=== PATIENT | female | born 1955 | race Caucasian/White ===

== ENCOUNTER 2019-03-17 22:42 | Inpatient (IN) | payer MEDICARE, OTHER ==
[~2019-03-17] VITALS: Ht 162.6 cm; Wt 110.4 kg
--- NOTE | 2019-03-17 22:50 | PHYS DOC ---
Past History Past Medical History: Bronchitis, CAD, COPD, Diabetes, Heart Disease, Other Past Surgical History: Angioplasty Smoking: Cigarettes Adult General Chief Complaint Chief Complaint: ".. I ve been sick since .. coughing all the time.. short of breath,.. fever .. chills...." HPI HPI Patient is a 63 year old female who presents with above hx and complaints fever, chills, malaise, myalgia, arthralgia, wheezing, chest discomfort, and fatigue. Patient does smoke. Patient localizes pain along left sternal border has been present for the last couple hours. Patient had been coughing hard prior to the onset of pain. Patient states it may be related to . No recent travel. No significant ill contacts other than the 2 grandchildren that have upper respiratory infection.. She did not get flu vaccination this season. She does have a history of elevated cholesterol and prior coronary artery disease, diabetes, and tobacco use. Patient does have a history of previous [address] ents. Pt. follows with Dr. Champion. Review of Systems Review of Systems Constitutional: Complaints of fever or chills [] Eyes: Denies change in visual acuity, redness, or eye pain [] HENT: Denies nasal congestion or sore throat [] Respiratory: Hx. non productive cough and wheezing. Cardiovascular: No additional information not addressed in HPI [] GI: Denies abdominal pain, nausea, vomiting, bloody stools or diarrhea [] : Denies dysuria or hematuria [] Musculoskeletal: Complaints of myalgia Integument: Denies rash or skin lesions [] Neurologic: Denies headache, focal weakness or sensory changes [] Endocrine: Denies polyuria or polydipsia [] All other systems were reviewed and found to be within normal limits, except as documented in this note. Family History Family History Multiple family members she has had cardiovascular disease. Mother at age 44. Has two brothers have history of respiratory problems and one brother of acute CO. One sister has a history of respiratory and cardiac issues. Current Medications Current Medications See nursing for home medications Allergies Allergies See nursing for allergies-penicillin codeine hydrocodone metformin informant and morphine Physical Exam Physical Exam Constitutional: Moderate acute distress, non-toxic appearance. [] HENT: Normocephalic, atraumatic, bilateral external ears normal, oropharynx moist, mild injection of pharynx, no oral exudates, nose swollen turbinates and rhinorrhea Eyes: PERRLA, EOMI, conjunctiva normal, no discharge. [] Neck: Normal range of motion, no tenderness, supple, no stridor. [] Cardiovascular:Heart rate regular rhythm, no murmur []PMI slightly to the left Lungs & Thorax: Bilateral breath sounds equal at apexes with scattered wheezes throughout on auscultation [] Abdomen: Bowel sounds normal, soft, no tenderness, no masses, no pulsatile masses. Obese. Skin: Warm, dry, no erythema, no rash. [] Back: No tenderness, no CVA tenderness. [] Extremities: No tenderness, no cyanosis, no clubbing, ROM intact, trace ankle edema. [] Neurologic: Alert and oriented X 3, normal motor function, normal sensory function, no focal deficits noted. [] Psychologic: Affect anxious, judgement normal, mood normal. [] EKG EKG My interpretation EKG shows a sinus rhythm at 73 bpm. No finding acute STEMI. Does have metabolic block with some nonspecific contour changes. But no findings acute STEMI with contralateral changes.[] Radiology/Procedures Radiology/Procedures [][place] [address] IMAGING REPORT Signed PATIENT: EDGARDO LA MACCOUNT: [id number] : 1955 LOCATION: ER AGE: 63 SEX: F EXAM STATUS: REG ER ORD. PHYSICIAN: RAUL BREWER MD REASON: Chest pain, cough, congestion, dyspnea, elev. d dimer PROCEDURE: CT ANGIOGRAPHY CHEST PQRS Compliance Statement: One or more of the following individualized dose reduction techniques were utilized for this examination: 1. Automated exposure control 2. Adjustment of the mA and/or kV according to patient size 3. Use of iterative reconstruction technique CT CHEST WITH CONTRAST, PULMONARY ANGIOGRAM History: Chest pain, cough, congestion, dyspnea, elevated d-dimer. Comparison: CT abdomen and pelvis with contrast September 04, 2012. Technique: Helical CT of the chest was performed after the administration of 100 cc of Omnipaque 350 intravenous contrast according to PE protocol. Axial and coronal reconstructions were obtained. 3-D MIP images were constructed to better evaluate the pulmonary arteries. Findings: Pulmonary arteries are adequately opacified. There is no evidence of pulmonary embolism. There is no thoracic aortic dissection. Visualized thyroid is symmetric. There is mild bilateral hilar adenopathy. No mediastinal adenopathy. Subcentimeter mediastinal lymph nodes. The great vessels are normal caliber. There is coronary artery disease. The cardiac size is normal, no pericardial effusion. New There is no pleural effusion. There is minimal atelectasis in the posterior lower lobes bilaterally. The central airways are patent. There is a 5 mm groundglass nodule in the right lower lobe, image 105. There is a 5 mm subsolid nodule in the superior segment of the left lower lobe, image 74. Lobular contour of the inferior spleen is incompletely imaged but is stable from prior study. Right adrenal nodule is stable. Left adrenal nodule is stable. Degenerative endplate spurring of the thoracic spine. IMPRESSION: 1. There is no CT evidence of pulmonary embolus. 2. Mild bilateral hilar adenopathy is nonspecific and may be reactive. Recommend CT chest follow-up in 3 months. 3. There is a subcentimeter groundglass nodule in the right lower lobe and a subsolid nodule in the left lower lobe. Suggest attention on follow-up. 4. Stable small bilateral adrenal nodules. Electronically signed by: Goldy Alonzo MD (03/18/2019 2:49 AM) [id number] DICTATED AND SIGNED BY: GOLDY ALONZO MD DATE: 03/18/19 0249 CC: FANI CHAMPION; RAUL BREWER MD ~ Course & Med Decision Making Course & Med Decision Making Pertinent Labs and Imaging studies reviewed. (See chart for details) Pt. admitted to Dr. Curiel with cardiology consult. Heart score 5 to 6 Impression: 1. Chest Pain- chest wall 2. Bronchitis 3. Elevated D-dimer 0.88 4. DM 5. Hilar Adenopathy and scattered infiltrates 6. CADz - Stents x 2 7. HTN 8. Hx Elevated Lipids 9. Tobacco Use 10. Dyspnea [] Dragon Disclaimer Dragon Disclaimer This electronic medical record was generated, in whole or in part, using a voice recognition dictation system. Departure Departure: Disposition: 01 HOME/RESIDENCE PRIOR TO ADM Condition: STABLE Referrals: FANI CHAMPION (PCP) Will Disclaimer This chart was dictated in whole or in part using Voice Recognition software in a busy, high-work load, and often noisy Emergency Department environment. It may contain unintended and wholly unrecognized errors or omissions. Dragon Disclaimer This chart was dictated in whole or in part using Voice Recognition software in a busy, high-work load, and often noisy Emergency Department environment. It may contain unintended and wholly unrecognized errors or omissions. RAUL BREWER MD Mar 17, 2019 22:50
[2019-03-17] MEDS ORDERED: ASPIRIN 81 MG TAB.CHEW PO ONE (23:00)
[2019-03-18] MEDS: IV RINGERS SOLUTION,LACTATED 1,000 ML IV SCH ×2 (00:28→02:16)
[2019-03-18 00:32] LABS: BASO % 1 % (0-3); EOS % 0 % (0-3); HEMATOCRIT 41.9 % (36.0-47.0); HEMOGLOBIN 14.2 g/dL (12.0-15.5); LYMPH # 1.7 x10^3/uL (1.0-4.8); LYMPH % 27 % (24-48); MEAN CORPUSCULAR HEMOGLOBIN 31 pg (25-35); MEAN CORPUSCULAR HGB CONC 34 g/dL (31-37); MEAN CORPUSCULAR VOLUME 92 fL (79-100); MONO # 0.7 x10^3/uL (0.0-1.1); MONO % 12 % (0-9); NEUT # 3.8 x10^3uL (1.8-7.7); NEUT % 61 % (31-73); PLATELET COUNT 161 x10^3/uL (140-400); RED BLOOD COUNT 4.55 x10^6/uL (3.50-5.40); RED CELL DISTRIBUTION WIDTH 13.7 % (11.5-14.5); WHITE BLOOD COUNT 6.3 x10^3/uL (4.0-11.0)
[2019-03-18 00:45] LABS: CALCIUM 8.4 mg/dL (8.5-10.1); CREATININE 0.8 mg/dL (0.6-1.0); GFR 72.7; POTASSIUM 3.9 mmol/L (3.5-5.1)
[2019-03-18 00:54] LABS: ALBUMIN 3.7 g/dL (3.4-5.0); DIRECT BILIRUBIN 0.2 mg/dL (0.0-0.2); MAGNESIUM 1.9 mg/dL (1.8-2.4); TOTAL BILIRUBIN 0.6 mg/dL (0.2-1.0)
[2019-03-18] MEDS ORDERED: IV RINGERS SOLUTION,LACTATED 1,000 ML IV ONE (01:15)
--- NOTE | 2019-03-18 01:48 | RAD ---
CHEST PA LATERAL History: Chest pain, cough, congestion Comparison: Two-view chest August 05, 2012. Findings: The cardiomediastinal silhouette is normal. Pulmonary vasculature is normal. The lungs are clear. No pleural effusion or pneumothorax is seen. There is no acute bone abnormality. IMPRESSION: No acute cardiopulmonary process. Electronically signed by: Goldy Alonzo MD (03/18/2019 1:46 AM) [id number]
[2019-03-18] MEDS ORDERED: IOHEXOL 350 MG/ML 100 ML VIAL. IV ONE (02:15)
--- NOTE | 2019-03-18 02:27 | EKG ---
[address] [address] Test Date: 2019-03-17 Test Time: 23:19:47 Pat Name: EDGARDO LA Department: Room: Gender: F [employer]: : 1955 Requested By: RAUL BREWER Order Number: [id number] Reading MD: Measurements Intervals [place] Rate: 73 P: 41 VT: 142 QRS: -26 QRSD: 88 T: 10 QT: 362 QTc: 402 Interpretive Statements SINUS RHYTHM LEFTWARD AXIS INCOMPLETE RIGHT BUNDLE BRANCH BLOCK QRS(T) CONTOUR ABNORMALITY CONSIDER ANTEROSEPTAL MYOCARDIAL DAMAGE POSSIBLY ABNORMAL ECG RI6.01 No previous ECG available for comparison
[2019-03-18] MEDS ORDERED: CONTRAST GIVEN MC PRN (02:30)
[2019-03-18 02:39] LABS: INFLUENZA A PATIENT NEGATIVE (NEGATIVE); INFLUENZA B PATIENT NEGATIVE (NEGATIVE)
[2019-03-18 02:52] LABS: BACTERIA,URINE 0 /HPF (0-FEW); BILIRUBIN,URINE NEG (NEG); CLARITY,URINE CLEAR; COLOR,URINE YELLOW; GLUCOSE,URINE NEG (NEG); NITRITE,URINE NEG (NEG); RBC,URINE 0 /HPF (0-2); SQUAMOUS EPITHELIAL CELL,UR OCC /LPF; UROBILINOGEN,URINE 0.2 mg/dL (0.2 mg/dL); WBC,URINE OCC /HPF (0-4)
--- NOTE | 2019-03-18 02:53 | RAD ---
PQRS Compliance Statement: One or more of the following individualized dose reduction techniques were utilized for this examination: 1. Automated exposure control 2. Adjustment of the mA and/or kV according to patient size 3. Use of iterative reconstruction technique CT CHEST WITH CONTRAST, PULMONARY ANGIOGRAM History: Chest pain, cough, congestion, dyspnea, elevated d-dimer. Comparison: CT abdomen and pelvis with contrast September 04, 2012. Technique: Helical CT of the chest was performed after the administration of 100 cc of Omnipaque 350 intravenous contrast according to PE protocol. Axial and coronal reconstructions were obtained. 3-D MIP images were constructed to better evaluate the pulmonary arteries. Findings: Pulmonary arteries are adequately opacified. There is no evidence of pulmonary embolism. There is no thoracic aortic dissection. Visualized thyroid is symmetric. There is mild bilateral hilar adenopathy. No mediastinal adenopathy. Subcentimeter mediastinal lymph nodes. The great vessels are normal caliber. There is coronary artery disease. The cardiac size is normal, no pericardial effusion. New There is no pleural effusion. There is minimal atelectasis in the posterior lower lobes bilaterally. The central airways are patent. There is a 5 mm groundglass nodule in the right lower lobe, image 105. There is a 5 mm subsolid nodule in the superior segment of the left lower lobe, image 74. Lobular contour of the inferior spleen is incompletely imaged but is stable from prior study. Right adrenal nodule is stable. Left adrenal nodule is stable. Degenerative endplate spurring of the thoracic spine. IMPRESSION: 1. There is no CT evidence of pulmonary embolus. 2. Mild bilateral hilar adenopathy is nonspecific and may be reactive. Recommend CT chest follow-up in 3 months. 3. There is a subcentimeter groundglass nodule in the right lower lobe and a subsolid nodule in the left lower lobe. Suggest attention on follow-up. 4. Stable small bilateral adrenal nodules. Electronically signed by: Goldy Alonzo MD (03/18/2019 2:49 AM) [id number]
[2019-03-18 02:54] LABS: BARBITURATES NEG (NEG); BENZODIAZEPINES NEG (NEG); CANNABINOIDS NEG (NEG); COCAINE NEG (NEG); METHADONE NEG (NEG); OPIATES NEG (NEG); PHENCYCLIDINE NEG (NEG)
[2019-03-18 02:55] LABS: AMPHETAMINE/METHAMPHETAMINE NEG (NEG)
[2019-03-18] MEDS ORDERED: ENOXAPARIN ** NOTE DOSE ** SYRINGE SQ ONE (03:30)
[2019-03-18] MEDS ORDERED: ALBUTEROL SULFATE 8GM INHALER. INH ONE (03:30)
[2019-03-18] MEDS ORDERED: ACETAMINOPHEN 325 MG TABLET PO PRN (03:30)
[2019-03-18] MEDS ORDERED: ONDANSETRON PF 4 MG/2 ML VIAL. IV PRN (03:30)
[2019-03-18] MEDS ORDERED: predniSONE 10 MG TABLET PO ONE (03:30)
[2019-03-18] MEDS ORDERED: AZITHROMYCIN 250 MG TABLET. PO ONE (03:30)
[2019-03-18] MEDS ORDERED: CLOP75TA PO (04:41)
[2019-03-18] MEDS ORDERED: LIDO700A21 TP (04:52)
[2019-03-18] MEDS ORDERED: RANO500T2 PO (04:52)
[2019-03-18] MEDS ORDERED: ATOR10TA60 PO (04:52)
[2019-03-18] MEDS ORDERED: POTA20TA4 PO (04:52)
[2019-03-18] MEDS ORDERED: TORS10TA3 PO (04:52)
[2019-03-18] MEDS ORDERED: NITR0.4T22 SL (04:52)
[2019-03-18] MEDS ORDERED: METO-239 PO (04:52)
[2019-03-18 05:11] VITALS: BP 112/67
[2019-03-18] MEDS ORDERED: ISOS20TA2 PO (05:24)
[2019-03-18] MEDS: IPRATRPIUM/ALBUTEROL 0.5/2.5MG 3 ML NEBU. NEB SCH ×4 (05:29→21:12)
--- NOTE | 2019-03-18 05:59 | NUR ---
The patient, EDGARDO LA, 63 y/o, F admitted by ANDREA MASTERSON MD, was given written information regarding hospital policies, unit procedures and contact persons. Pt accompanied onto the unit by EMS personnel and nursing security shift supervisor. Pt ambulated from gurney to bed with standby assistance. Pt reports that she has felt "a little crappy" since , coughing and feeling hot/cold. Vitals signs and stable. Pt denies pain at this time. Wound noted to left lower abdomen, pictured taken and placed in chart. Pt reports that it is an infected hair and that she gets them all the time. Wound washed and covered with a foam dressing. Wound care consulted. Valuables were checked and left in room with pt. Reviewed plan of care, home medications and oriented pt to room. Call light within reach.
--- NOTE | 2019-03-18 07:56 | PDOC2 ---
CARDIAC CONSULT DATE OF CONSULT Date Of Consult DATE: 03/18/19 TIME: 07:52 REASON FOR CONSULT Reason for Consult Chest pain Hypertension REFERRING PHYSICIAN Referring Physician Dr. Finn SOURCE Source: Chart review, Patient HPI History of Present Illness This is a 63 yo female who presented secondary to cold symptoms with cough and shortness of breath. Patient has a history of CAD s/p PCI/stents x2 and reportedly small vessel disease and blockage that cannot be stented. Follows closely with Dr. Ayala. Had heart cath 11/2018. Reports stress test at that time along with echo within the last 3 months. Reports chronic angina that she has PRN nitro for. Is also on isosorbide as well. Has had cold with congestion and persistent cough since . Has been having stabbing pain in her left chest. Radiated up her left side and down her left arm. Pain seemed to be worsened with coughing, but is not always brought on by coughing. No associated with dizziness, diaphoresis, SOA, or nausea/vomiting. PAST MEDICAL HISTORY Cardiovascular: CAD, HTN, hyperipidemia Pulmonary: COPD GI: GERD Musculoskeletal: Osteoarthritis PAST SURGICAL HISTORY Past Surgical History: Hysterectomy, Other (PCI/stent ) FAMILY HISTORY Family History: Diabetes, Heart Disease, Stroke SOCIAL HISTORY Smoke: 1 pack per day ALCOHOL: none Drugs: None Lives: with Family CURRENT MEDICATIONS Current Medications Current Medications Aspirin (Children'S Aspirin) 324 mg 1X ONCE PO Last administered on 03/18/19at 00:28; Start 03/17/19 at 23:00; Stop 03/17/19 at 23:01; Status DC Lactated Ringer's 1,000 ml @ 100 mls/hr Q10H IV Last administered on 03/18/19at 02:16; Start 03/17/19 at 23:00; Stop 03/18/19 at 08:59 Lactated Ringer's 1,000 ml @ 1,000 mls/hr 1X ONCE IV Last administered on 03/18/19at 01:15; Start 03/18/19 at 01:15; Stop 03/18/19 at 02:14; Status DC Iohexol (Omnipaque 350 Mg/ml) 100 ml 1X ONCE IV Last administered on 03/18/19at 02:22; Start 03/18/19 at 02:15; Stop 03/18/19 at 02:19; Status DC Info (Do NOT chart on this entry -- for MONITORING) 1 each PRN DAILY PRN MC SEE COMMENTS; Start 03/18/19 at 02:30; Stop 03/20/19 at 02:29 Albuterol Sulfate (Ventolin Hfa Inhaler) 2 puff 1X ONCE INH Last administered on 03/18/19at 03:54; Start 03/18/19 at 03:30; Stop 03/18/19 at 03:31; Status DC Prednisone (Prednisone) 50 mg 1X ONCE PO Last administered on 03/18/19at 03:54; Start 03/18/19 at 03:30; Stop 03/18/19 at 03:31; Status DC Azithromycin (Zithromax) 500 mg 1X ONCE PO Last administered on 03/18/19at 03:55; Start 03/18/19 at 03:30; Stop 03/18/19 at 03:31; Status DC Enoxaparin Sodium (Lovenox 80mg Syringe) 80 mg 1X ONCE SQ Last administered on 03/18/19at 03:54; Start 03/18/19 at 03:30; Stop 03/18/19 at 03:31; Status DC Ondansetron HCl (Zofran) 4 mg PRN Q4HRS PRN IV NAUSEA/VOMITING; Start 03/18/19 at 03:30; Stop 03/19/19 at 03:29 Acetaminophen (Tylenol) 650 mg PRN Q4HRS PRN PO FEVER; Start 03/18/19 at 03:30; Stop 03/19/19 at 03:29 Albuterol/ Ipratropium (Duoneb) 3 ml RTQID NEB Last administered on 03/18/19at 05:29; Start 03/18/19 at 08:00; Stop 03/19/19 at 07:59 Enoxaparin Sodium (Lovenox 80mg Syringe) 80 mg BID SQ ; Start 03/18/19 at 09:00; Status UNV Aspirin (Children'S Aspirin) 81 mg DAILYWBKFT PO ; Start 03/18/19 at 08:00 Azithromycin (Zithromax) 250 mg DAILY PO ; Start 03/18/19 at 09:00 Active Scripts Active Reported Isosorbide Mononitrate 20 Mg Tablet 20 Mg PO BID Lidocaine PATCH (Lidocaine) 1 Each Adh..patch 1 Each TP DAILY REMOVE AFTER 12 HOURS NITROGLYCERIN SubLingual (Nitroglycerin) 0.4 Mg Tab.subl 1 Tab SL UD 1st sign of attack; may repeat every 5 mins; if pain persists after 3 in 15 min, medical attention is recommended Atorvastatin Calcium 10 Mg Tablet 1 Tab PO DAILY Potassium Chloride (Potassium Chloride) 20 Meq Tablet.er 20 Meq PO DAILY Torsemide 10 Mg Tablet 1 Tab PO DAILY 30 Days Ranexa (Ranolazine) 500 Mg Tab.er.12h 1 Tab PO BID 30 Days Metoprolol Succinate ( Xl ) (Metoprolol Succinate) 25 Mg Tab.er.24h 1 Tab PO DAILY Clopidogrel (Clopidogrel Bisulfate) 75 Mg Tablet 1 Tab PO DAILY ALLERGIES Allergies: Coded Allergies: Penicillins (Verified Allergy, Unknown, 03/18/19) codeine (Verified Allergy, Unknown, 03/18/19) hydrocodone (Verified Allergy, Unknown, 03/18/19) metformin (Verified Allergy, Unknown, 03/18/19) morphine (Verified Allergy, Unknown, 03/18/19) shrimp (Verified Allergy, Unknown, 03/18/19) ROS Review of Systems 14 point ROS conducted with pertinent positive noted above in HPI PHYSICAL EXAM General: Alert, Oriented X3, Cooperative, No acute distress HEENT: Atraumatic, Mucous membr. moist/pink Lungs: Clear to auscultation Heart: Regular rate, Normal S1, Normal S2 Abdomen: Soft Extremities: No edema, Normal pulses Skin: No rashes, No breakdown Neuro: Sensation intact Psych/Mental Status: Mental status NL, Mood NL MUSCULOSKELETAL: Osteoarthritic changes both hands VITALS Vital Signs Vital Signs Date Time Temp Pulse Resp B/P (MAP) Pulse Ox O2 Delivery O2 Flow Rate FiO2 03/18/19 05:30 97 Room Air 03/18/19 05:11 97.8 68 20 112/67 (82) LABS LABS Laboratory Tests Test 03/18/19 00:22 03/18/19 02:11 03/18/19 02:33 03/18/19 06:12 White Blood Count 6.3 x10^3/uL (4.0-11.0) Red Blood Count 4.55 x10^6/uL (3.50-5.40) Hemoglobin 14.2 g/dL (12.0-15.5) Hematocrit 41.9 % (36.0-47.0) Mean Corpuscular Volume 92 fL (79-100) Mean Corpuscular Hemoglobin 31 pg (25-35) Mean Corpuscular Hemoglobin Concent 34 g/dL (31-37) Red Cell Distribution Width 13.7 % (11.5-14.5) Platelet Count 161 x10^3/uL (140-400) Neutrophils (%) (Auto) 61 % (31-73) Lymphocytes (%) (Auto) 27 % (24-48) Monocytes (%) (Auto) 12 % (0-9) Eosinophils (%) (Auto) 0 % (0-3) Basophils (%) (Auto) 1 % (0-3) Neutrophils # (Auto) 3.8 x10^3uL (1.8-7.7) Lymphocytes # (Auto) 1.7 x10^3/uL (1.0-4.8) Monocytes # (Auto) 0.7 x10^3/uL (0.0-1.1) Eosinophils # (Auto) 0.0 x10^3/uL (0.0-0.7) Basophils # (Auto) 0.0 x10^3/uL (0.0-0.2) Prothrombin Time 9.4 SEC (9.4-11.4) Prothromb Time International Ratio 0.9 (0.9-1.1) Activated Partial Thromboplast Time 27 SEC (23-33) D-Dimer (Elaina) 0.88 mg/L (0.00-0.50) Sodium Level 144 mmol/L (136-145) Potassium Level 3.9 mmol/L (3.5-5.1) Chloride Level 103 mmol/L (98-107) Carbon Dioxide Level 26 mmol/L (21-32) Anion Gap 15 (6-14) Blood Urea Nitrogen 9 mg/dL (7-20) Creatinine 0.8 mg/dL (0.6-1.0) Estimated GFR (Cockcroft-Gault) 72.7 Glucose Level 106 mg/dL (70-99) Calcium Level 8.4 mg/dL (8.5-10.1) Magnesium Level 1.9 mg/dL (1.8-2.4) Total Bilirubin 0.6 mg/dL (0.2-1.0) Direct Bilirubin 0.2 mg/dL (0.0-0.2) Aspartate Amino Transf (AST/SGOT) 22 U/L (15-37) Alanine Aminotransferase (ALT/SGPT) 24 U/L (14-59) Alkaline Phosphatase 117 U/L (46-116) Creatine Kinase 105 U/L (26-192) Troponin I Quantitative < 0.017 ng/mL (0-0.055) < 0.017 ng/mL (0-0.055) NH-Sgc-U-Type Natriuretic Peptide 54 pg/mL (0-124) Total Protein 7.0 g/dL (6.4-8.2) Albumin 3.7 g/dL (3.4-5.0) Lipase 157 U/L (73-393) Influenza Type A (Rapid) Negative (NEGATIVE) Influenza Type B (Rapid) Negative (NEGATIVE) Group A Streptococcus Rapid Negative (NEGATIVE) Urine Collection Type Unknown Urine Color Yellow Urine Clarity Clear Urine pH 5.5 Urine Specific [place] 1.020 Urine Protein Neg (NEG-TRACE) Urine Glucose (UA) Neg mg/dL (NEG) Urine Ketones (Stick) Neg mg/dL (NEG) Urine Blood Neg (NEG) Urine Nitrite Neg (NEG) Urine Bilirubin Neg (NEG) Urine Urobilinogen Dipstick 0.2 mg/dL (0.2 mg/dL) Urine Leukocyte Esterase Neg (NEG) Urine RBC 0 /HPF (0-2) Urine WBC Occ /HPF (0-4) Urine Squamous Epithelial Cells Occ /LPF Urine Bacteria 0 /HPF (0-FEW) Urine Opiates Screen Neg (NEG) Urine Methadone Screen Neg (NEG) Urine Barbiturates Neg (NEG) Urine Phencyclidine Screen Neg (NEG) Urine Amphetamine/Methamphetamine Neg (NEG) Urine Benzodiazepines Screen Neg (NEG) Urine Cocaine Screen Neg (NEG) Urine Cannabinoids Screen Neg (NEG) Urine Ethyl Alcohol Neg (NEG) ASSESSMENT/PLAN Assessment/Plan 1. Chest pain, mixed features. AMI ruled out. 2. CAD s/p PCI/stents x2. Reportedly with known small vessel disease and stenosis not amendable to PCI per [facility] 11/2018. Follows with Dr. Ayala. Echo within last 6 months conducted. 3. Hypertension; controlled 4. Hyperlipidemia; statin 5. Acute viral illness 6. Tobaccoism; discusses/encouraged cessation Recommendations Obtain records from Dr. Ayala, [facility] Resume secondary prevention measures Continue Imdur, Ranexa for anginal prevention Nitro SL PRN Could consider outpatient referral for [facility] through [facility] given chronic angina. Will defer to primary general manager oracle data cloud. JUAN PABLO HOLT APRN Mar 18, 2019 07:56
[2019-03-18] MEDS: AZITHROMYCIN 250 MG TABLET. PO SCH (08:26)
[2019-03-18] MEDS: ASPIRIN 81 MG TAB.CHEW PO SCH (08:27)
[2019-03-18] MEDS ORDERED: ENOXAPARIN ** NOTE DOSE ** SYRINGE SQ SCH (09:00)
[2019-03-18] MEDS ORDERED: TORSEMIDE PO SCH (09:00)
[2019-03-18] MEDS: ISOSORBIDE MONONITRATE 20 MG PO SCH ×2 (09:00→21:00)
[2019-03-18] MEDS: METOPROLOL SUCC 24HR ER 25 MG TAB.ER.24H. PO SCH (10:42)
[2019-03-18] MEDS: RANOLAZINE 500 MG TAB.ER.12H PO SCH ×2 (10:43→21:00)
[2019-03-18 10:52] VITALS: BP 95/50
[2019-03-18] MEDS: CLOPIDOGREL BISULFATE 75 MG TABLET PO SCH (11:01)
[2019-03-18] MEDS: ATORVASTATIN CALCIUM 10 MG TABLET. PO SCH (11:01)
[2019-03-18] MEDS: POTASSIUM CHLORIDE 20 MEQ TABLET.ER. PO SCH (11:01)
[2019-03-18 12:30] VITALS: BP 109/62
--- NOTE | 2019-03-18 12:56 | RAD ---
Examination: VENOUS LOWER EXT BILATERAL History: Bilateral leg pain, elevated d-dimer COMPARISON/CORRELATION: None FINDINGS: Bilateral lower extremity duplex venous ultrasound exam was performed. Grayscale, color Doppler, and spectral Doppler imaging was performed. Compression and augmentation was performed. The right common femoral vein, superficial femoral vein, popliteal vein, and greater saphenofemoral junction are normal with no evidence of deep venous thrombus. Normal compressibility and augmentation is evident. The left common femoral vein, superficial femoral vein, popliteal vein, and greater saphenofemoral junction are normal with no evidence of deep venous thrombus. Normal compressibility and augmentation is evident. Visualized calf veins bilaterally are unremarkable. IMPRESSION: Normal bilateral lower extremity duplex ultrasound exam. No evidence of deep venous thrombus involving the lower extremities. Electronically signed by: Ramiro López MD (03/18/2019 12:54 PM) [id number]
[2019-03-18] MEDS: ENOXAPARIN ** NOTE DOSE ** SYRINGE SQ SCH (15:00)
--- NOTE | 2019-03-18 15:19 | HP ---
ADMIT DATE: 03/18/2019 HISTORY OF PRESENT ILLNESS: The patient is a 63-year-old female patient who came to the Emergency Room complaining that she has been sick since last , about 5 days ago complaining of cough, shortness of breath, fever and chills. She also complained of malaise, myalgia, arthralgia, wheezing and fatigue. She does smoke. The patient localized her pain along the left sternal border and has been present for the last couple of hours. She has been coughing hard prior to onset of pain and no recent travel. No significant ill contact other than 2 grandchildren, have upper respiratory tract infection. She did not get flu vaccination this season. She does have a history of elevated cholesterol. She was basically evaluated in the Emergency Room. Her EKG showed that she was in sinus rhythm at 73 beats per minute, no finding of ST segment elevation myocardial infarction. She had a CT scan of the chest with contrast showed that there is no CT evidence of pulmonary embolus. Mild bilateral hilar adenopathy is nonspecific and may be reactive. She has also had subcentimeter ground glass nodule in the right lower lobe and a soft solid nodule in the left lower lobe suggests attention on followup. She has stable small bilateral adrenal nodules. She has so far, 2 sets of cardiac enzymes, both of them were less than 0.017. The patient was admitted to consult the cardiology team. PAST MEDICAL HISTORY: Significant for coronary artery disease, hypertension, hyperlipidemia, chronic obstructive pulmonary disease and gastroesophageal reflux disease. She has also osteoarthritis and obstructive sleep apnea. PAST SURGICAL HISTORY: Significant for hysterectomy. She did have coronary artery disease with PCI and stent deployment. FAMILY HISTORY: Significant for the fact that her one of her brothers had a heart attack at age of 48. Her mother also had according to her cardiac rupture at the age of 44. SOCIAL HISTORY: She is , has 3 sons and 1 daughter. She smokes up to a pack a day, does not drink alcohol or use any recreational drugs. REVIEW OF SYSTEMS: The patient denied any blurring of vision, cataract, glaucoma or macular degeneration. Denied any earache, tinnitus or sensorineural deafness. Denied any nosebleeds, stuffy nose or postnasal drip. Denied any nausea or vomiting. Did complain of diarrhea, but no hematemesis, melena or hematochezia. Denied any dysuria, frequency or hematuria. Did complain of chest pain, which is atypical. PHYSICAL EXAMINATION: GENERAL: On arrival to the Emergency Room, she looked well and was clearly in no apparent respiratory distress. No pallor, jaundice, cyanosis or thyromegaly. No jugular venous distention. No limb edema. VITAL SIGNS: Her heart rate was 81, blood pressure was 131/74, temperature was 99, respiratory rate 20, and oxygen saturation was 95% on room air. HEAD, EYES, EARS, NOSE AND THROAT: Showed normocephalic, atraumatic. NECK: Supple. HEART: Showed normal first and second heart sounds. No gallop or murmur. CHEST: Clear to auscultation. No crepitation or rhonchi. ABDOMEN: Distended, soft, nontender. No guarding or rigidity. No organomegaly. All hernial orifices intact. Bowel sounds normal. NEUROLOGIC: She is awake, alert, responding appropriately. All cranial nerves intact. EXTREMITIES: She moves extremities without difficulty. 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 LABORATORY DATA: Her lab work on arrival showed a serum sodium 144, potassium 3.9, chloride 103, bicarbonate 26, anion gap of 15, BUN 9, creatinine 0.8, estimated GFR was 72 mL per minute. Her glucose 106, calcium was 8.4, magnesium was 1.9. Total bilirubin, AST, ALT, alkaline phosphatase were normal. CK was 105. Troponin was less than 0.017. Beta natriuretic peptide was 54. Total protein 7, albumin 3.7, lipase 157. Her prothrombin time was 9.4, INR of 0.9, aPTT was 27. D-dimer was 0.88. Urinalysis essentially unremarkable. Toxic screen was negative. Her influenza A and B and group A streptococcus rapid testing was negative. Her chest x-ray showed the cardiomediastinal silhouette is normal. Pulmonary vasculature is normal. The lungs are clear. No pleural effusion or pneumothorax is seen. There are no acute abnormalities. CT angio of the chest showed that there is no CT evidence of pulmonary embolus. There is bilateral hilar adenopathy that is nonspecific and may be reactive. Recommend CT chest, follow up in 3 months. There is a subcentimeter ground glass nodule in the right lower lobe. There is a solid nodule in the left lower lobe. Venous Doppler ultrasound of both lower extremities showed normal bilateral lower extremity Doppler ultrasound exam. No evidence of deep vein thrombosis involving the lower extremities. ASSESSMENT AND PLAN: The patient was admitted with chest pain, somewhat atypical. She has so far, 2 sets of cardiac enzymes that ruled out acute myocardial infarction. She is known to have hypertension, hyperlipidemia, coronary artery disease, status post PCI with stent deployment. She also has osteoarthritis and obstructive sleep apnea and chronic obstructive pulmonary disease. Plan is to continue with all her medication that include furosemide 10 mg once a day, Ranexa 500 mg twice a day, potassium chloride 20 mEq daily, metoprolol succinate 25 mg once a day, Plavix 75 mg once a day, atorvastatin 10 mg at bedtime, isosorbide mononitrate 20 mg twice a day, azithromycin 250 mg daily, Lovenox 80 mg twice a day, aspirin 81 mg once a day, albuterol sulfate/ipratropium bromide in 3 mL by nebulizer 4 times a day, Tylenol 650 mg every 4 hours, and ondansetron 4 mg every 6 hours. We have already consulted the Cardiology team and obviously will decide the further management accordingly. ANDREA MASTERSON MD DR: MICAH/tomeka JOB#: [id number] / [id number]
[2019-03-18 15:24] VITALS: BP 109/62
[2019-03-18 19:17] VITALS: BP 98/62
[2019-03-18 21:40] VITALS: BP 90/61
[2019-03-18] MEDS: LACTOBACILLUS RHAMNOSUS GG 1 CAPSULE. PO SCH (21:40)
[2019-03-18] MEDS ORDERED: BENZOCAINE/MENTHOL LOZNGE 18'S BOX. PO PRN (21:45)
--- NOTE | 2019-03-18 22:00 | NUR ---
Pt sleeping in bed on assessment, arousable to name. Pt reports that she has had four loose stools today, but they are more solid than they where the day before. C. diff. pending at this time. Pt denies pain at this time. Call light within reach.
[2019-03-19] MEDS: IPRATRPIUM/ALBUTEROL 0.5/2.5MG 3 ML NEBU. NEB SCH (04:54)
[2019-03-19 05:37] VITALS: BP 93/58
[2019-03-19 06:25] LABS: BASO % 0 % (0-3); EOS % 0 % (0-3); HEMOGLOBIN 12.7 g/dL (12.0-15.5); LYMPH # 2.3 x10^3/uL (1.0-4.8); LYMPH % 47 % (24-48); MEAN CORPUSCULAR HEMOGLOBIN 31 pg (25-35); MEAN CORPUSCULAR HGB CONC 34 g/dL (31-37); MEAN CORPUSCULAR VOLUME 92 fL (79-100); MONO # 0.4 x10^3/uL (0.0-1.1); MONO % 9 % (0-9); NEUT # 2.2 x10^3uL (1.8-7.7); NEUT % 45 % (31-73); PLATELET COUNT 141 x10^3/uL (140-400); RED BLOOD COUNT 4.12 x10^6/uL (3.50-5.40); RED CELL DISTRIBUTION WIDTH 13.7 % (11.5-14.5); WHITE BLOOD COUNT 4.8 x10^3/uL (4.0-11.0)
[2019-03-19 06:37] LABS: CALCIUM 8.3 mg/dL (8.5-10.1); CREATININE 0.8 mg/dL (0.6-1.0); GFR 72.7; POTASSIUM 3.1 mmol/L (3.5-5.1)
[2019-03-19] MEDS ORDERED: ISOS40TA10 PO (07:49)
--- NOTE | 2019-03-19 08:15 | NUR ---
wound care patient seen per wound care consult. see wound assessment. patient has an infected hair, patient states that she has had these since she was 16 years old. patient sees a product support specialist for this, RN stated they are trying to get a hold of her product support specialist to order the cream that patient uses to assist with healing. the area was cleaned and redressed with a foam dressing, recommendations to change every 2-3 days. notified RN, about the POC and wound care is signing off at this time.
[2019-03-19] MEDS: CLOPIDOGREL BISULFATE 75 MG TABLET PO SCH (08:58)
[2019-03-19] MEDS: ATORVASTATIN CALCIUM 10 MG TABLET. PO SCH (08:58)
[2019-03-19] MEDS: AZITHROMYCIN 250 MG TABLET. PO SCH (08:58)
[2019-03-19] MEDS: LACTOBACILLUS RHAMNOSUS GG 1 CAPSULE. PO SCH (08:58)
[2019-03-19] MEDS: METOPROLOL SUCC 24HR ER 25 MG TAB.ER.24H. PO SCH (08:59)
[2019-03-19] MEDS: POTASSIUM CHLORIDE 20 MEQ TABLET.ER. PO SCH (08:59)
[2019-03-19] MEDS: ASPIRIN 81 MG TAB.CHEW PO SCH (08:59)
[2019-03-19] MEDS: RANOLAZINE 500 MG TAB.ER.12H PO SCH (08:59)
[2019-03-19] MEDS ORDERED: ISOSORBIDE DINITRATE 10 MG TABLET. PO SCH (09:00)
[2019-03-19] MEDS: ENOXAPARIN ** NOTE DOSE ** SYRINGE SQ SCH (09:00)
[2019-03-19] MEDS ORDERED: TORSEMIDE 20 MG TABLET. PO SCH (09:00)
[2019-03-19 10:19] VITALS: BP 102/64
[2019-03-19 12:56] LABS: CALCIUM 8.5 mg/dL (8.5-10.1); CREATININE 0.8 mg/dL (0.6-1.0); GFR 72.7; POTASSIUM 3.6 mmol/L (3.5-5.1)
[2019-03-19 14:51] VITALS: BP 108/65
--- NOTE | 2019-03-19 17:37 | NUR ---
NURSING NOTE: PATIENT DISCHARGED TO HOME. PATIENT GIVEN DISCHARGE INSTRUCTIONS, GAVE VERBAL UNDERSTANDING. ALL PATIENT BELONGINGS SENT HOME WITH PATIENT. PATIENT ASSISTED TO FAMILY VEHICLE BY FAMILY. NO CONCERNS NOTED.
--- NOTE | 2019-03-19 17:56 | DS ---
DATE OF DISCHARGE: 03/19/2019 HOSPITAL COURSE: The patient is a 63-year-old female patient who was admitted with a complaint of chest pain. She also complained of malaise, myalgia, arthralgia, wheezing and fatigue. She does smoke. The patient localizes her pain along the left sternal border and has been present for the last couple of hours. She has been coughing. No significant ill contact other than 2 grandchildren have upper respiratory tract infection. She did not get flu vaccination this season. She does have a history of elevated cholesterol. She was basically evaluated in the Emergency Room. Her EKG showed that she was in sinus rhythm with no finding of ST segment elevation myocardial infarction. She had a CT scan of the chest with contrast, which showed no evidence of pulmonary emboli. She has mild bilateral hilar adenopathy that is nonspecific and may be reactive. She also had subcentimeter ground glass nodules in the right lower lobe and soft solid nodule in the left lower lobe suggested attention and followup. She has stable small bilateral adrenal nodules. She was admitted and has had 2 sets of cardiac enzymes that ruled out myocardial infarction. Her fasting lipid profile showed serum triglyceride 77, total cholesterol 86, LDL cholesterol 45, VLDL was 15, and HDL cholesterol 26, the ratio was 3. TSH was normal. She was seen in consultation by the office system analyst and no active intervention was recommended. The patient was discharged home to follow with her primary office system analyst. PHYSICAL EXAMINATION: GENERAL: 2When I examined her this afternoon, she was sitting in the edge of the bed comfortably in no apparent distress. She was pale, but no jaundice, cyanosis or thyromegaly. No jugular venous distension. No limb edema. VITAL SIGNS: Her heart rate was 61, blood pressure was 108/65, temperature was 97.5, respiratory rate was 20, and oxygen saturation was 93% on room air. HEAD, EYES, EARS, NOSE AND THROAT: Normocephalic, atraumatic. NECK: Supple. HEART: Showed normal first and second heart sounds. No gallop or murmur. CHEST: Shows central trachea, equal bilateral expansion, air entry. Few scattered rhonchi. No crepitation. ABDOMEN: Soft, nontender. NEUROLOGIC: She is awake, alert, responding appropriately. All cranial nerves intact. EXTREMITIES: She moves extremities without difficulty. She ambulates without assistance or assistive devices. LABORATORY DATA: Showed a serum sodium 143, potassium 3.6, chloride 107, bicarbonate 28, anion gap of 8, BUN 11, creatinine 0.8, estimated GFR was 73 mL per minute. Her glucose 107, calcium was 8.5. Her white cell count was 4800, hemoglobin 12.7, hematocrit 38, MCV 92, and platelet count of 141,000. Her prothrombin time was 9.4, INR of 0.9, aPTT was 27. D-dimer was 0.88. DISCHARGE MEDICATIONS: The patient was discharged home to continue on atorvastatin calcium 10 mg at bedtime, Plavix 75 mg once a day, isosorbide dinitrate 20 mg twice a day, Lidoderm patch applied topically once a day on for 12 hours and off for 12 hours, metoprolol succinate 25 mg once a day, nitroglycerin 0.4 mg sublingual every 5 minutes x 3, potassium chloride 20 mEq once a day, Ranexa 500 mg twice a day and torsemide 10 mg once a day. FINAL DISCHARGE DIAGNOSES: 1. Chest pain, acute myocardial infarction, ruled out. She has 2 sets of cardiac enzymes that were negative. 2. Coronary artery disease, status post PCI with stent deployment x 2. Apparently, she is known to have small vessel disease and stenosis not amenable to PCI by left heart catheterization. 3. Hypertension, well controlled. 4. Hyperlipidemia for which she is on statin. 5. Tobaccoism. The patient encouraged to quit smoking. ANDREA MASTERSON MD DR: MICAH/tomeka JOB#: [id number] / [id number]
== END 2019-03-19 17:38 | disposition home or self-care (01) | DRG 392 ==
LOC: ER 22:42 → 1 SOUTH 03-18 03:00
PROVIDERS: ADMIT Internal Medicine; ATTEND Internal Medicine
DX: K21.9 Gastro-esophageal reflux disease without esophagitis (principal); I25.10 Atherosclerotic heart disease of native coronary artery without angina pectoris; J44.9 Chronic obstructive pulmonary disease, unspecified; F17.210 Nicotine dependence, cigarettes, uncomplicated; E78.00 Pure hypercholesterolemia, unspecified; I10 Essential (primary) hypertension; G47.33 Obstructive sleep apnea (adult) (pediatric); M19.90 Unspecified osteoarthritis, unspecified site; E78.5 Hyperlipidemia, unspecified; B34.9 Viral infection, unspecified; Z95.5 Presence of coronary angioplasty implant and graft; Z90.710 Acquired absence of both cervix and uterus; Z82.49 Family history of ischemic heart disease and other diseases of the circulatory system; Z83.3 Family history of diabetes mellitus; Z82.3 Family history of stroke; Z79.899 Other long term (current) drug therapy; Z79.82 Long term (current) use of aspirin; Z79.02 Long term (current) use of antithrombotics/antiplatelets
CPT/HCPCS: 36415; 71046; 71275; 80048; 80061; 80076; 80307; 81001; 82550; 83690; 83735; 83880; 84443; 84484; 85025; 85379; 85610; 85730; 87070; 87493; 87804; 87880; 93005; 93970; 94640; 96360; 96361; 99406; J0456; J1650; J7120; J7512; J7613; J7620; Q9967; 99285-25

== ENCOUNTER 2020-05-04 22:26 | Emergency (ER) | payer MEDICARE, OTHER ==
[~2020-05-04] VITALS: Ht 162.6 cm; Wt 102.2 kg
[~2020-05-04 22:26] MED LIST: ATOR10TA60 PO; CLOP75TA PO; ISOS20TA6 PO; ISOS40TA10 PO; LIDO700A21 TP; METO-239 PO; NITR0.4T22 SL; POTA20TA4 PO; RANO500T2 PO; TORS10TA3 PO
[2020-05-04] MEDS: ASPIRIN CHEWABLE 81 MG TABLET. PO ONE (23:02)
[2020-05-04 23:08] VITALS: BP 114/82
[2020-05-04 23:09] LABS: BASO % 0 % (0-3); EOS % 0 % (0-3); HEMATOCRIT 44.1 % (36.0-47.0); HEMOGLOBIN 14.8 g/dL (12.0-15.5); LYMPH # 3.6 x10^3/uL (1.0-4.8); LYMPH % 33 % (24-48); MEAN CORPUSCULAR HEMOGLOBIN 30 pg (25-35); MEAN CORPUSCULAR HGB CONC 34 g/dL (31-37); MEAN CORPUSCULAR VOLUME 90 fL (79-100); MONO # 0.8 x10^3/uL (0.0-1.1); MONO % 8 % (0-9); NEUT # 6.4 x10^3uL (1.8-7.7); NEUT % 59 % (31-73); PLATELET COUNT 238 x10^3/uL (140-400); RED BLOOD COUNT 4.89 x10^6/uL (3.50-5.40); RED CELL DISTRIBUTION WIDTH 14.5 % (11.5-14.5); WHITE BLOOD COUNT 10.8 x10^3/uL (4.0-11.0)
[2020-05-04 23:10] LABS: CALCIUM 9.2 mg/dL (8.5-10.1); POTASSIUM 3.5 mmol/L (3.5-5.1)
--- NOTE | 2020-05-04 23:11 | RAD ---
Two-view chest dated 05/04/2020. Comparison made to 03/17/2019. CLINICAL INDICATION: Chest pain. FINDINGS: PA and lateral views obtained. Heart and mediastinal contours are stable. Lungs are clear. No consoli dation or pleural effusion. No pneumothorax. There is prominent perihilar linear markings, unchanged. IMPRESSION: No acute radiographic abnormality. Stable findings compared to 03/17/2019. Electronically signed by: Emiliano Vazquez MD (05/04/2020 11:08 PM) JEWEL
--- NOTE | 2020-05-04 23:22 | PHYS DOC ---
Past History Past Medical History: Bronchitis, CAD, COPD, Diabetes, High Cholesterol, Heart Disease, Hypertension, Other Past Surgical History: Angioplasty Additional Past Surgical Histo: 2 stents Smoking: Cigarettes Alcohol Use: None General Adult EDM: Chief Complaint: CHEST PAIN HPI: HPI: Patient is a 64-year-old female coming in for 2 days of intermittent "crushing" chest pain, states the pain is sometimes sharp. Comes and goes and is not affected by movement or exertion. Since she is having the feeling is feels like there is a squeezing and difficult to take a breath. Denies any cough. Patient has a history significant for 2 cardiac stents and another smaller artery with a 94% blockage. Last heart catheter 2018. Patient states his pain feels similar to when she needed the stents prior. Says she is also had some lightheadedness and came in tonight because she was walking to her kitchen and was "staggering" due to her lightheadedness. Denies any vomiting or diarrhea. Denies any blood in her stools. Patient states she has been compliant on her medications including Plavix. Takes 81 mg aspirin daily but has not taken any today. Denies any vomiting or bloody stools, states she has a normal p.o. intake. Has a history of tobacco use and is still currently smoking. Review of Systems: Review of Systems: All other systems within normal limits except for as noted in the HPI Current Medications: Current Meds: Current Medications Medications (Trade) Dose Ordered Sig/[place] Start Time Stop Time Status Last Admin Dose Admin Aspirin (Aspirin Chewable) 324 mg 1X ONCE 05/04/20 23:00 05/04/20 23:01 DC 05/04/20 23:02 324 MG Allergies: Allergies: Allergies Coded Allergies Type Severity Reaction Last Updated Verified Penicillins Allergy Unknown 03/18/19 Yes codeine Allergy Unknown 03/18/19 Yes hydrocodone Allergy Unknown 03/18/19 Yes metformin Allergy Unknown 03/18/19 Yes morphine Allergy Unknown 03/18/19 Yes shrimp Allergy Unknown 03/18/19 Yes Physical Exam: PE: Constitutional: Well developed, well nourished, no acute distress, non-toxic appearance. [] HENT: Normocephalic, atraumatic, bilateral external ears normal, nose normal. [] Eyes: PERRLA, conjunctiva normal, no discharge. [] Neck: No rigidity, supple, no stridor. [] Cardiovascular: Regular rate and rhythm, brisk cap refill [] Lungs & Thorax: Non labored symmetric respirations, no tachypnea or respiratory distress [] Abdomen: Soft, nondistended. Skin: Warm, dry, no erythema, no rash. [] Back: Unremarkable Extremities: No deformities, range of motion grossly intact, no lower extremity edema [] Neurologic: Alert and oriented X 3, no focal deficits noted. [] Psychologic: Affect normal, judgement normal, mood normal. [] Current Patient Data: Labs: Laboratory Tests Test 05/04/20 22:40 White Blood Count 10.8 x10^3/uL (4.0-11.0) Red Blood Count 4.89 x10^6/uL (3.50-5.40) Hemoglobin 14.8 g/dL (12.0-15.5) Hematocrit 44.1 % (36.0-47.0) Mean Corpuscular Volume 90 fL (79-100) Mean Corpuscular Hemoglobin 30 pg (25-35) Mean Corpuscular Hemoglobin Concent 34 g/dL (31-37) Red Cell Distribution Width 14.5 % (11.5-14.5) Platelet Count 238 x10^3/uL (140-400) Neutrophils (%) (Auto) 59 % (31-73) Lymphocytes (%) (Auto) 33 % (24-48) Monocytes (%) (Auto) 8 % (0-9) Eosinophils (%) (Auto) 0 % (0-3) Basophils (%) (Auto) 0 % (0-3) Neutrophils # (Auto) 6.4 x10^3uL (1.8-7.7) Lymphocytes # (Auto) 3.6 x10^3/uL (1.0-4.8) Monocytes # (Auto) 0.8 x10^3/uL (0.0-1.1) Eosinophils # (Auto) 0.0 x10^3/uL (0.0-0.7) Basophils # (Auto) 0.0 x10^3/uL (0.0-0.2) Sodium Level 141 mmol/L (136-145) Potassium Level 3.5 mmol/L (3.5-5.1) Chloride Level 106 mmol/L (98-107) Carbon Dioxide Level 26 mmol/L (21-32) Anion Gap 9 (6-14) Blood Urea Nitrogen 20 mg/dL (7-20) Creatinine 1.0 mg/dL (0.6-1.0) Estimated GFR (Cockcroft-Gault) 56.0 BUN/Creatinine Ratio 20 (6-20) Glucose Level 109 mg/dL (70-99) H Calcium Level 9.2 mg/dL (8.5-10.1) Magnesium Level Pending Total Bilirubin Pending Aspartate Amino Transferase (AST) Pending Alanine Aminotransferase (ALT) Pending Alkaline Phosphatase Pending [id number] Natriuretic Peptide Pending Total Protein Pending Albumin Pending Albumin/Globulin Ratio Pending Vital Signs: Vital Signs Date Time Temp Pulse Resp B/P (MAP) Pulse Ox O2 Delivery O2 Flow Rate FiO2 05/04/20 22:50 67 22 113/82 (92) 97 Room Air 05/04/20 22:27 97.9 EKG: EKG: Sinus rhythm, heart rate 70 bpm, left axis deviation, no ST elevation or depression, no ectopy, normal intervals. T waves unremarkable. No change in ECG dated March 17 2019 [] Radiology/Procedures: Radiology/Procedures: Two-view chest dated 05/04/2020. Comparison made to 03/17/2019. CLINICAL INDICATION: Chest pain. FINDINGS: PA and lateral views obtained. Heart and mediastinal contours are stable. Lungs are clear. No consolidation or pleural effusion. No pneumothorax. There is prominent perihilar linear markings, unchanged. IMPRESSION: No acute radiographic abnormality. Stable findings compared to 03/17/2019.[] Heart Score: C/O Chest Pain: Yes HEART Score for Chest Pain: HEART Score for Chest Pain Response (Comments) Value History Highly Suspicious 2 ECG Normal 0 Age >45 - < 65 1 Risk Factors >3 Risk Factors or Hx CAD 2 Troponin < Normal Limit 0 Total 5 Risk Factors: Risk Factors: DM, Current or recent (<one month) smoker, HTN, HLP, family history of CAD, obesity. Risk Scores: Score 0 - 3: 2.5% MACE over next 6 weeks - Discharge Home Score 4 - 6: 20.3% MACE over next 6 weeks - Admit for Clinical Observation Score 7 - 10: 72.7% MACE over next 6 weeks - Early Invasive Strategies Course & Med Decision Making: Course & Med Decision Making Pertinent Labs and Imaging studies reviewed. (See chart for details) Heart score5, patient has been admitted. 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 Will Disclaimer: Will Disclaimer: This electronic medical record was generated, in whole or in part, using a voice recognition dictation system. Departure Departure: Impression: Primary Impression: Unstable angina Disposition: 02 DC/TRF OTHER SHORT TERM HOS Condition: GUARDED Referrals: FANI CHAMPION (PCP) KIMBERLY KRISHNAMURTHY MD May 04, 2020 23:22
[2020-05-04 23:23] LABS: ALBUMIN/GLOBULIN RATIO 1.1 (1.0-1.7); TOTAL BILIRUBIN 0.8 mg/dL (0.2-1.0); TOTAL PROTEIN 7.8 g/dL (6.4-8.2)
[2020-05-04 23:51] LABS: BACTERIA,URINE FEW /HPF (0-FEW); BILIRUBIN,URINE NEG (NEG); CLARITY,URINE CLEAR; COLOR,URINE YELLOW; GLUCOSE,URINE NEG (NEG); NITRITE,URINE NEG (NEG); RBC,URINE 0 /HPF (0-2); SQUAMOUS EPITHELIAL CELL,UR MOD /LPF; UROBILINOGEN,URINE 0.2 mg/dL (0.2 mg/dL)
--- NOTE | 2020-05-05 05:21 | EKG ---
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
== END 2020-05-05 02:33 | disposition short-term general hospital (02) ==
LOC: ER 22:26
DX: I25.110 Atherosclerotic heart disease of native coronary artery with unstable angina pectoris (principal); J44.9 Chronic obstructive pulmonary disease, unspecified; E11.9 Type 2 diabetes mellitus without complications; E78.00 Pure hypercholesterolemia, unspecified; I11.9 Hypertensive heart disease without heart failure; F17.210 Nicotine dependence, cigarettes, uncomplicated; Z88.0 Allergy status to penicillin; Z88.5 Allergy status to narcotic agent; Z91.013 Allergy to seafood; Z88.8 Allergy status to other drugs, medicaments and biological substances
CPT/HCPCS: 36415; 71046; 80053; 81001; 83735; 83880; 84484; 85025; 85610; 85730; 93005; 99285-25

== ENCOUNTER 2020-12-01 13:14 | Emergency (ER) | payer MEDICARE, OTHER ==
[~2020-12-01] VITALS: Ht 162.6 cm; Wt 102.2 kg
--- NOTE | 2020-12-01 13:39 | PHYS DOC ---
Past History Past Medical History: Bronchitis, CAD, COPD, Diabetes, High Cholesterol, Heart Disease, Hypertension, Other (SON MCGEE APRN) Past Surgical History: Angioplasty Additional Past Surgical Histo: 2 stents (SON MCGEE APRN) Smoking: Cigarettes Alcohol Use: None (SON MCGEE APRN) General Adult EDM: Chief Complaint: CHEST PAIN HPI: HPI: Patient is a 65-year-old female who presents to the emergency department for left-sided chest pain that has been intermittent x1 week. It does not radiate. She takes a baby aspirin daily. No alleviating factors. Patient reports with her chest pain she is experiencing shortness of breath, dizziness. She denies cough, fever, nausea, vomiting, syncope. 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 Gilbert at [facility]. Patient has a history of angina and does take nitro at home but did not take any. Patient reports a history of hypertension, high c holesterol, stent placement. She states that she has an artery that is 94% blocked but was unable to have a stent placed. And reports that she is on a blood thinner because of this (SON MCGEE APRN) Review of Systems: Review of Systems: Constitutional: SEE HPI Respiratory: SEE HPI Cardiovascular: SEE HPI GI: see HPI Neurologic: SEE HPI (SON MCGEE APRN) Current Medications: Current Meds: Current Medications Medications (Trade) Dose Ordered Sig/[place] Start Time Stop Time Status Last Admin Dose Admin Aspirin (Aspirin Chewable) 243 mg 1X ONCE 12/01/20 13:45 12/01/20 13:46 UNV (SON MCGEE APRN) Allergies: Allergies: Allergies Coded Allergies Type Severity Reaction Last Updated Verified Penicillins Allergy Unknown 03/18/19 Yes codeine Allergy Unknown 03/18/19 Yes hydrocodone Allergy Unknown 03/18/19 Yes metformin Allergy Unknown 03/18/19 Yes morphine Allergy Unknown 03/18/19 Yes shrimp Allergy Unknown 03/18/19 Yes (SON MCGEE APRN) Physical Exam: PE: Constitutional: Well developed, well nourished, no acute distress, non-toxic appearance. [] HENT: Normocephalic, atraumatic, bilateral external ears normal, oropharynx moist, no oral exudates, nose normal. [] Eyes: PERRL, EOMI, conjunctiva normal, no discharge. [] Neck: Normal range of motion, no tenderness, supple, no stridor. [] Cardiovascular:Heart rate regular rhythm, no murmur, chest pain not reproducible [] Lungs & Thorax: Bilateral breath sounds clear to auscultation [] Abdomen: Bowel sounds normal, soft, no tenderness, no masses, no pulsatile masses. [] Skin: Warm, dry, no erythema, no rash. [] Back: Normal range of motion Extremities: No tenderness, no cyanosis, no clubbing, ROM intact, no edema. [] Neurologic: Alert and oriented X 3, normal motor function, normal sensory function, no focal deficits noted. [] Psychologic: Affect normal, judgement normal, mood normal. [] (SON MCGEE APRN) Current Patient Data: Labs: Laboratory Tests Test 12/01/20 13:46 White Blood Count 10.0 x10^3/uL Red Blood Count 4.40 x10^6/uL Hemoglobin 13.6 g/dL Hematocrit 40.4 % Mean Corpuscular Volume 92 fL Mean Corpuscular Hemoglobin 31 pg Mean Corpuscular Hemoglobin Concent 34 g/dL Red Cell Distribution Width 13.5 % Platelet Count 227 x10^3/uL Neutrophils (%) (Auto) 65 % Lymphocytes (%) (Auto) 27 % Monocytes (%) (Auto) 6 % Eosinophils (%) (Auto) 0 % Basophils (%) (Auto) 1 % Neutrophils # (Auto) 6.5 x10^3uL Lymphocytes # (Auto) 2.7 x10^3/uL Monocytes # (Auto) 0.6 x10^3/uL Eosinophils # (Auto) 0.0 x10^3/uL Basophils # (Auto) 0.1 x10^3/uL Sodium Level 140 mmol/L Potassium Level 4.6 mmol/L Chloride Level 104 mmol/L Carbon Dioxide Level 28 mmol/L Anion Gap 8 Blood Urea Nitrogen 16 mg/dL Creatinine 0.9 mg/dL Estimated GFR (Cockcroft-Gault) 63.0 BUN/Creatinine Ratio 18 Glucose Level 90 mg/dL Calcium Level 9.3 mg/dL Total Bilirubin 0.8 mg/dL Aspartate Amino Transf (AST/SGOT) 22 U/L Alanine Aminotransferase (ALT/SGPT) 23 U/L Alkaline Phosphatase 106 U/L Troponin I Quantitative 0.031 ng/mL Total Protein 6.9 g/dL Albumin 3.7 g/dL Albumin/Globulin Ratio 1.2 Current Medications Medications (Trade) Dose Ordered Sig/[place] Route PRN Reason Start Time Stop Time Status Last Admin Dose Admin Aspirin (Aspirin Chewable) 243 mg 1X ONCE PO 12/01/20 13:45 12/01/20 13:46 DC 12/01/20 13:43 (SON MCGEE APRN) EKG: EKG: First EKG performed by ER staff at 1327 shows sinus rhythm with a rate of 52, QTc 376, no STEMI read by Dr. Juarez at 1332. Repeat EKG performed by ER staff at 1426 shows sinus bradycardia with a heart rate of 48, no STEMI read by Dr. Juarez at 1435. [] (SON MCGEE APRN) Radiology/Procedures: Radiology/Procedures: []PROCEDURE: PORTABLE CHEST 1V Exam Date: 12/01/2020 1:31 PM XR CHEST 1V Indication: Reason: chest pain and shortness of breath for 1 week / Spl. Instructions: / History: . Comparison: May 04, 2020 FINDINGS/ IMPRESSION: There are prominent interstitial markings bilaterally which are nonspecific but could represent interstitial pneumonia or edema. The cardiac silhouette and pulmonary vasculature are within normal limits. There is no focal consolidation, pleural effusion or pneumothorax. Electronically signed by: Marily Adamson MD (12/01/2020 1:46 PM) [id number] DICTATED AND SIGNED BY: MARILY ADAMSON MD DATE: 12/01/20 1345 CC: FANI CHAMPION; SON MCGEE APRN ~MTH0 0 (SON MCGEE APRN) Heart Score: C/O Chest Pain: Yes HEART Score for Chest Pain: HEART Score for Chest Pain Response (Comments) Value History Moderately Suspicious 1 ECG Normal 0 Age >45 - < 65 1 Risk Factors >3 Risk Factors or Hx CAD 2 Troponin < Normal Limit 0 Total 4 Risk Factors: Risk Factors: DM, Current or recent (<one month) smoker, HTN, HLP, family history of CAD, obesity. Risk Scores: Score 0 - 3: 2.5% MACE over next 6 weeks - Discharge Home Score 4 - 6: 20.3% MACE over next 6 weeks - Admit for Clinical Observation Score 7 - 10: 72.7% MACE over next 6 weeks - Early Invasive Strategies (SON MCGEE APRN) Course & Med Decision Making: Course & Med Decision Making Pertinent Labs and Imaging studies reviewed. (See chart for details) Patient reports to the emergency department with left-sided chest pain with shortness of breath, dizziness. Work-up in the ER consisted of blood work, EKG, chest x-ray. Patient has a history of a blockage and is 94% blocked. She has a history of hypertension, high cholesterol, angina, stent placement. Patient's chalk molding machine operator is Dr. Gilbert at [facility]. Patient treated with aspirin in the ER. She was not given nitroglycerin at this time because her blood pressure is borderline. Patient's heart score is four. Patient's troponin was 0.031. Her chest x-ray showed increased interstitial markings which the radiologist read may indicate edema versus interstitial pneumonia. An antibiotic was ordered to treat possible pneumonia.. Her CBC and CMP were unremarkable. I discussed patient's case with Lou the nurse practitioner with cardiology at [facility] and she agreed to accept the patient for consult. I discussed patient's case and findings with Dr. Curiel who agreed to admit the patient at [facility] under his services. Care transferred [id number] (SON MCGEE APRN) Dragon Disclaimer: Will Disclaimer: This electronic medical record was generated, in whole or in part, using a voice recognition dictation system. (SON MCGEE APRN) Attending Co-Sign The patient was seen and interviewed as well as examined at the bedside. The chart was reviewed. The case was discussed. Agree with the plan of care. (DAVID JUAREZ DO) Departure Departure: Impression: Primary Impression: Chest pain Qualified Codes: R07.9 - Chest pain, unspecified Disposition: 02 SHORT TERM HOSPITAL Condition: STABLE Referrals: FANI CHAMPION (PCP) SON MCGEE APRN Dec 01, 2020 13:39 DAVID JUAREZ DO Dec 01, 2020 17:35
[2020-12-01] MEDS ORDERED: ASPIRIN CHEWABLE 81 MG TABLET. PO ONE (13:45)
--- NOTE | 2020-12-01 13:48 | RAD ---
Exam Date: 12/01/2020 1:31 PM XR CHEST 1V Indication: Reason: chest pain and shortness of breath for 1 week / Spl. Instructions: / History: . Comparison: May 04, 2020 FINDINGS/ IMPRESSION: There are prominent interstitial markings bilaterally which are nonspecific but could represent inter stitial pneumonia or edema. The cardiac silhouette and pulmonary vasculature are within normal limits. There is no focal consolidation, pleural effusion or pneumothorax. Electronically signed by: Jose Adamson MD (12/01/2020 1:46 PM) [id number]
[2020-12-01 14:02] LABS: BASO # 0.1 x10^3/uL (0.0-0.2); BASO % 1 % (0-3); EOS % 0 % (0-3); HEMATOCRIT 40.4 % (36.0-47.0); HEMOGLOBIN 13.6 g/dL (12.0-15.5); LYMPH # 2.7 x10^3/uL (1.0-4.8); LYMPH % 27 % (24-48); MEAN CORPUSCULAR HEMOGLOBIN 31 pg (25-35); MEAN CORPUSCULAR HGB CONC 34 g/dL (31-37); MEAN CORPUSCULAR VOLUME 92 fL (79-100); MONO # 0.6 x10^3/uL (0.0-1.1); MONO % 6 % (0-9); NEUT # 6.5 x10^3uL (1.8-7.7); NEUT % 65 % (31-73); PLATELET COUNT 227 x10^3/uL (140-400); RED CELL DISTRIBUTION WIDTH 13.5 % (11.5-14.5)
[2020-12-01 14:14] LABS: CALCIUM 9.3 mg/dL (8.5-10.1); CREATININE 0.9 mg/dL (0.6-1.0); POTASSIUM 4.6 mmol/L (3.5-5.1)
[2020-12-01 14:19] LABS: ALBUMIN 3.7 g/dL (3.4-5.0); ALBUMIN/GLOBULIN RATIO 1.2 (1.0-1.7); TOTAL BILIRUBIN 0.8 mg/dL (0.2-1.0); TOTAL PROTEIN 6.9 g/dL (6.4-8.2)
--- NOTE | 2020-12-01 14:22 | EKG ---
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
--- NOTE | 2020-12-01 14:49 | EKG ---
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
[2020-12-01 15:10] VITALS: BP 110/79
== END 2020-12-01 17:16 | disposition short-term general hospital (02) ==
LOC: ER 13:14
DX: U07.1 COVID-19 (principal); R07.89 Other chest pain; I25.10 Atherosclerotic heart disease of native coronary artery without angina pectoris; J44.9 Chronic obstructive pulmonary disease, unspecified; E11.9 Type 2 diabetes mellitus without complications; E78.00 Pure hypercholesterolemia, unspecified; I11.9 Hypertensive heart disease without heart failure; F17.210 Nicotine dependence, cigarettes, uncomplicated; Z98.61 Coronary angioplasty status; Z88.0 Allergy status to penicillin; Z88.5 Allergy status to narcotic agent; Z91.013 Allergy to seafood; Z88.8 Allergy status to other drugs, medicaments and biological substances
CPT/HCPCS: 36415; 71045; 80053; 84484; 85025; 87426; 93005; 96365; 96366; 99285; J1956; U0003